=== PATIENT | female | born 1995 | race Caucasian/White ===

== ENCOUNTER 2020-10-09 18:02 | Emergency (ER) | payer OTHER, SELFPAY ==
[2020-10-09 18:24] VITALS: BP 133/89; PULSE 79; RESP 18; TEMP 36.8; O2SAT 97
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
[2020-10-09] MEDS: HYDROcodone-acetaminophen 5-325 mg Tablet 1 TAB PO (19:42)
[2020-10-09 19:44] VITALS: BP 131/79; PULSE 71; RESP 16; O2SAT 95
== END 2020-10-09 19:45 | disposition home or self-care (01) ==
PROVIDERS: Emergency Provider Emergency Medicine
DX: S13.4XXA Sprain of ligaments of cervical spine, initial encounter (principal); V89.2XXA Person injured in unspecified motor-vehicle accident, traffic, initial encounter
CPT/HCPCS: 70450; 72125; 73110; 99283

== ENCOUNTER 2022-09-23 21:28 | Emergency (ER) | payer SELFPAY ==
[2022-09-23 21:39] VITALS: BP 137/93; PULSE 94; RESP 18; TEMP 36.7; O2SAT 97; BMI 30.2
--- NOTE | 2022-09-23 21:44 | ECG_ITS ---
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 Measurements Intervals [place] Rate: 98 P: 36 MI: 140 QRS: 44 QRSD: 97 T: 4 QT: 336 QTc: 430 Interpretive Statements SINUS RHYTHM POSSIBLE RIGHT VENTRICULAR CONDUCTION DELAY [RSR (QR) IN V1/V2] NONSPECIFIC T-WAVE ABNORMALITY No previous ECG available for comparison Electronically Signed On 09-24-2022 14:42:29 CDT by Jesus Myers M.D. [email or web address]
--- NOTE | 2022-09-23 21:50 | XRR_ITS ---
PROCEDURE INFORMATION: Exam: XR Chest Exam date and time: 09/23/2022 10:06 PM Age: 27 years old Clinical indication: Pain; Angina pectoris; Additional info: Chest pain TECHNIQUE: Imaging protocol: Radiologic exam of the chest. Views: 1 view. COMPARISON: CT cervical spin wo con* [id number] 10/09/2020 6:47 PM FINDINGS: Lungs: Unremarkable. No consolidation. Pleural spaces: Unremarkable. No pleural effusion. No pneumothorax. Heart/Mediastinum: Unremarkable. No cardiomegaly. Bones/joints: Unremarkable. XR/XR chest 1V portable [id number] IMPRESSION: No acute findings.
[2022-09-23 22:46] LABS: Basophils % 0.5 %; Eosinophils # 0.1 10^3/uL (0.0-0.8); Eosinophils % 1.2 %; Hematocrit 40.6 % (37.0-47.0); Hemoglobin 13.9 g/dL (11.5-15.3); Lymphocytes # 1.1 10^3/uL (0.8-4.8); Lymphocytes % 18.3 %; Mean Corpuscular HGB Conc 34.2 g/dL (30.0-36.0); Mean Corpuscular Hemoglobin 28.7 pg (28.0-34.0); Mean Corpuscular Volume 83.9 fl (81-99); Mean Platelet Volume 9.9 fL (7.4-10.4); Monocytes # 0.6 10^3/uL (0.2-0.9); Monocytes % 10.5 %; Neutrophils # 3.98 10^3/uL (1.8-7.7); Neutrophils % 69.3 %; Nucleated Red Blood Cells % 0 %; Platelet Count 209 10^3/cmm (130-400); Red Blood Count 4.84 10^6/uL (4.1-5.3); Red Cell Distribution Width 12.1 % (12.1-15.1); White Blood Count 5.7 10^3/uL (4.0-10.0)
--- NOTE | 2022-09-23 22:50 | W.ED.CHESTPA ---
HPI - Chest Pain General: Chief Complaint: Chest Pain Stated Complaint: Chest Pains Time Seen by Provider: 09/23/22 21:50 History of Present Illness: 27-year-old female presents this evening with complaints of chest pain and discomfort. Patient reports pain started about 2 hours prior to coming to the ER. On exam patient reported that she was in having improvement in her discomfort but continued to have some burning substernally, this was approximately 4 hours after start of pain. Patient has had no surgeries. Patient has no chronic medical problems. Patient denies take any routine medications. Associated symptoms: Reports nausea; Deny dyspnea Review of Systems General: Reports: 10 or more systems reviewed and unremarkable except in HPI and below Card: Reports: chest pain Resp: Denies: dyspnea GI: Reports: nausea Physical Exam Const: COMMON NORMALS: alert HENMT: COMMON NORMALS: normocephalic HEAD & SCALP: normocephalic MOUTH: Normal oral and palatal mucosa present THROAT: posterior oropharynx abnormal cobblestoning Neck/C-Spine: COMMON NORMALS: full ROM Resp: COMMON NORMALS: normal respiratory effort and clear to auscultation bilaterally AUSCULTATION: clear to auscultation bilaterally Cardio: COMMON NORMALS: regular rate and regular rhythm RATE: regular rate RHYTHM: regular rhythm GI: COMMON NORMALS: Soft to palpation PALPATION: Yes Soft to palpation and Yes Tenderness to palpation present (GI) (Midepigastric) Extremity: COMMON NORMALS: normal to inspection Neuro: SENSORIUM/ORIENTATION: Yes alert Skin: COMMON NORMALS: turgor normal GENERAL SKIN EXAM: turgor normal Course Vital Signs: Vital signs: Vital Signs Temperature 98.1 F 09/23/22 21:39 Pulse Rate 94 09/23/22 21:39 Respiratory Rate 18 09/23/22 21:39 Blood Pressure 137/93 09/23/22 21:39 Pulse Oximetry 97 09/23/22 21:39 Oxygen Delivery Me thod Room Air 09/23/22 21:39 MDM - Chest Pain Medical Decision Making 27-year-old female comes in today with some chest discomfort. On exam patient has some tenderness in the midepigastrium of the stomach. Vital signs are normal. Respirations are even lungs are clear to auscultation. Skin is warm and dry. Differential diagnosis includes gallbladder disease, GERD, ACS, pancreatitis. CBC and CMP were unremarkable. Troponin was negative. EKG showed sinus rhythm without any ST elevation. Patient was given a GI cocktail which fully resolved her symptoms. Believe patient probably has some GERD we will go ahead and place her on some pantoprazole 40 mg daily for the next 2 weeks. Recommend following a gastritis diet and follow-up with primary care for persistent symptoms. Recommend return to the ER for new concerns. Patient reported understanding agreed to plan. Lab Data 09/23/22 22:35 09/23/22 22:35 Radiology Impressions Chest X-Ray 09/23/22 21:50 IMPRESSION: No acute findings. Laboratory Results WBC 5.7 10^3/uL (4.0-10.0) 09/23/22 22: RBC 4.84 10^6/uL (4.1-5.3) 09/23/22 22: Hgb 13.9 g/dL (11.5-15.3) 09/23/22 22:35 Hct 40.6 % (37.0-47.0) 09/23/22 22: MCV 83.9 fl (81-99) 09/23/22 22: MCH 28.7 pg (28.0-34.0) 09/23/22 22: MCHC 34.2 g/dL (30.0-36.0) 09/23/22 22:35 RDW 12.1 % (12.1-15.1) 09/23/22 22:35 Plt Count 209 10^3/cmm (130-400) 09/23/22 22:35 MPV 9.9 fL (7.4-10.4) 09/23/22 22:35 Neut % (Auto) 69.3 % 09/23/22 22:35 Lymph % (Auto) 18.3 % 09/23/22 22:35 [place] % (Auto) 10.5 % 09/23/22 22:35 Eos % (Auto) 1.2 % 09/23/22 22: Baso % (Auto) 0.5 % 09/23/22 22:35 Neut # (Auto) 3.98 10^3/uL (1.8-7.7) 09/23/22 22:35 Lymph # (Auto) 1.1 10^3/uL (0.8-4.8) 09/23/22 22:35 [place] # (Auto) 0.6 10^3/uL (0.2-0.9) 09/23/22 22:35 Eos # (Auto) 0.1 10^3/uL (0.0-0.8) 09/23/22 22:35 Baso # (Auto) 0.0 10^3/uL (0.0-0.1) 09/23/22 22:35 Nucleated RBC % (auto) 0 % 09/23/22 22:35 Nucleated RBCs # 0.0 /100WBC 09/23/22 22:35 Sodium 139 mmol/L (136-145) 09/23/22 22:35 Potassium 4.3 mmol/L (3.5-5.1) 09/23/22 22:35 Chloride 104 mmol/L (98-107) 09/23/22 22:35 Carbon Dioxide 25 mmol/L (22-29) 09/23/22 22:35 Anion Gap 14.3 (5-19) 09/23/22 22:35 BUN 12 mg/dL (6-20) 09/23/22 22:35 Creatinine 0.8 mg/dL (0.5-0.9) 09/23/22 22:35 GFR Calculation 87.4 mL/min (90-130) L 09/23/22 22:35 Glucose 90 mg/dL (65-115) 09/23/22 22:35 Calculated Osmolality 287 mOsm/kg (285-295) 09/23/22 22:35 Calcium 9.5 mg/dL (8.5-10.5) 09/23/22 22:35 Total Bilirubin 0.3 mg/dL (0.15-1.2) 09/23/22 22:35 AST 22 U/L (0-32) 09/23/22 22:35 ALT 32 U/L (0-33) 09/23/22 22:35 Alkaline Phosphatase 60 U/L (35-105) 09/23/22 22:35 Troponin T Baseline 6 ng/L (0-10) 09/23/22 22:35 Total Protein 6.5 g/dL (6.6-8.7) L 09/23/22 22:35 Albumin 4.4 g/dL (3.5-5.2) 09/23/22 22:35 Globulin 2.1 g/dL (1.3-4.6) 09/23/22 22:35 EKG Data EKG 1: EKG interpretation date: 09/23/22 EKG interpretation time: 21:50 Prior EKG tracings: not available for review Interpretation: Sinus rhythm, no ST elevation, no ectopy, regular rhythm with 98 bpm. No prior exam was available for comparison. Computer generated interpretation: Sinus rhythm, possible right ventricular conduction delay, nonspecific T wave abnormality, no previous EKG available for comparison. Discharge Plan Discharge Patient Disposition: Home Clinical Impression: Chest pain due to GERD Condition: Stable Prescriptions: New pantoprazole 40 mg tablet,delayed release (DR/EC) 40 mg PO DAILY Qty: 30 0RF No Action methocarbamol 750 mg tablet 750 mg PO Q6H PRN (Reason: spasms) Qty: 20 0RF Naprosyn 500 mg tablet 500 mg PO BID PRN (Reason: pain) Qty: 20 0RF Discharge Orders: Discharge ED (Routine); Ordered 09/23/22 Ordered By: Steve Mccall Discharge Diet: Advance as tolerated Discharge Activity: Increase activity as tolerated Patient Instructions: Diet for Stomach Ulcers and Gastritis (ED), GERD (Gastroesophageal Reflux Disease) (ED) Activity Restrictions/Additional Instructions: Use pantoprazole 40 mg 1 tablet daily for the next 2 weeks. Take the tablet 30 minutes before the first meal of the day. Use [id number] Mylanta as needed for breakthrough symptoms. Follow-up with primary care in 2 weeks for recheck. Return to ER for new concerns. Coding Level of Care Code ED Vice President Of Nursing for Mk Moseley
[2022-09-23] MEDS: aluminum-mag hydrox-simethicon 30 ML, sucralfate oral liq 1 GM PO (22:58)
[2022-09-23 23:04] LABS: Troponin(5th) Baseline 6 ng/L (0-10)
[2022-09-23 23:05] LABS: Alanine Aminotransferase 32 U/L (0-33); Albumin Level 4.4 g/dL (3.5-5.2); Alkaline Phosphatase 60 U/L (35-105); Anion Gap 14.3 (5-19); Aspartate Amino Transferase 22 U/L (0-32); Blood Urea Nitrogen 12 mg/dL (6-20); Calcium 9.5 mg/dL (8.5-10.5); Carbon Dioxide 25 mmol/L (22-29); Chloride 104 mmol/L (98-107); Globulin 2.1 g/dL (1.3-4.6); Glomerular Filtration Rate 87.4 mL/min (90-130); Glucose 90 mg/dL (65-115); Osmolality Calculated 287 mOsm/kg (285-295); Potassium 4.3 mmol/L (3.5-5.1); Sodium 139 mmol/L (136-145); Total Bilirubin 0.3 mg/dL (0.15-1.2); Total Protein 6.5 g/dL (6.6-8.7)
[2022-09-23 23:29] VITALS: BP 137/93; PULSE 94; RESP 18; TEMP 36.7; O2SAT 97
== END 2022-09-23 23:31 | disposition home or self-care (01) ==
PROVIDERS: Emergency Medicine; Emergency Provider Nurse Practitioner Family
DX: R07.9 Chest pain, unspecified (principal); K21.9 Gastro-esophageal reflux disease without esophagitis
CPT/HCPCS: 36415; 71045; 80053; 84484; 85025; 93005; 99285

== ENCOUNTER → 2023-11-15 18:36 | Outpatient (BNVA) | payer OTHER, SELFPAY | PROVIDERS: Visit Provider Family Medicine | DX: R39.9 Unspecified symptoms and signs involving the genitourinary system (principal) | CPT/HCPCS: 81000 ==

== ENCOUNTER → 2024-04-26 08:34 | Outpatient (BNVA) | payer OTHER, SELFPAY | PROVIDERS: PCP Family Medicine; Visit Provider Family Medicine | DX: Z13.6 Encounter for screening for cardiovascular disorders (principal); N39.0 Urinary tract infection, site not specified; Z68.25 Body mass index [BMI] 25.0-25.9, adult; Z30.02 Counseling and instruction in natural family planning to avoid pregnancy | CPT/HCPCS: 80053; 80061; 83036; 84439; 84443; 85025 ==

== ENCOUNTER → 2024-05-31 12:39 | Outpatient (BNVA) | payer OTHER, SELFPAY | PROVIDERS: PCP Family Medicine; Visit Provider Nurse Practitioner Women's Health | DX: Z12.4 Encounter for screening for malignant neoplasm of cervix (principal) | CPT/HCPCS: 87624 ==

== ENCOUNTER → 2024-09-02 11:53 | Outpatient (BNVA) | payer OTHER, SELFPAY | PROVIDERS: PCP Family Medicine | DX: R39.9 Unspecified symptoms and signs involving the genitourinary system (principal); N39.0 Urinary tract infection, site not specified | CPT/HCPCS: 81000; 87086 ==